=== PATIENT | male | born 1945 | race Two or more races ===

== ENCOUNTER 2017-11-06 10:26 | Outpatient (CLI) | payer OTHER | END 2017-11-06 11:16 | disposition home or self-care (01) | LOC: NUCLEAR 10:26 | DX: I87.2 Venous insufficiency (chronic) (peripheral) (principal) ==

== ENCOUNTER 2018-06-09 07:06 | Outpatient (CLI) | payer OTHER | END 2018-06-09 07:14 | disposition home or self-care (01) | LOC: NUCLEAR 07:06 | DX: I11.9 Hypertensive heart disease without heart failure (principal); I20.8 Other forms of angina pectoris | CPT/HCPCS: 78452; 93017; A9500; A9505; J0153 ==

== ENCOUNTER 2020-05-14 08:29 | Outpatient (CLI) | payer OTHER | END 2020-05-14 08:41 | disposition home or self-care (01) | LOC: NUCLEAR 08:29 | PROVIDERS: ATTEND Internal Medicine | DX: R00.0 Tachycardia, unspecified (principal); R00.2 Palpitations ==